=== PATIENT | male | born 1960 | race African-American/Black ===

== ENCOUNTER 2018-03-30 16:24 | Emergency (ER) | payer OTHER ==
[2018-03-30] MEDS ORDERED: Lidocaine 4% Cream 5 GM TUBE w/ Tegaderm ONE (16:54)
[2018-03-30] MEDS ORDERED: Adacel (T-DAP) 0.5 ML VIAL ONE (17:26)
== END 2018-03-30 17:37 | disposition home or self-care (01) ==
LOC: BURERS 16:24
DX: S01.01XA Laceration without foreign body of scalp, initial encounter (principal); I10 Essential (primary) hypertension; Z79.899 Other long term (current) drug therapy; W45.8XXA Other foreign body or object entering through skin, initial encounter
CPT/HCPCS: 12002; 90471; 90715

== ENCOUNTER 2019-08-26 19:09 | Emergency (ER) | payer OTHER | END 2019-08-26 20:00 | disposition home or self-care (01) | LOC: BURERS 19:09 | DX: T63.2X1A Toxic effect of venom of scorpion, accidental (unintentional), initial encounter (principal); I10 Essential (primary) hypertension | CPT/HCPCS: 99281 ==

== ENCOUNTER 2020-05-04 21:11 | Emergency (ER) | payer OTHER ==
[2020-05-04] MEDS ORDERED: Aspirin Chewable 81 MG TAB ONE (21:45)
--- NOTE | 2020-05-04 21:49 | CT ---
CT BRAIN WITHOUT CONTRAST: Date: 05/04/2020 The ventricles are normal ion size with no shift. No intracranial bleeding, mass, or sign of stroke f ound. Skull appears normal. Visible paranasal sinuses and mastoid air cells are clear. IMPRESSION: No acute intracranial findings. Preliminary report called to Rosa in the ER at 2135 hours. CODE CR. POS: HOME
[2020-05-04 21:53] LABS: INR-International Normal Ratio 1.1; Prothrombin Time 14.1 sec (12.0-14.7)
[2020-05-04 22:01] LABS: ALT (SGPT) 20 U/L (8-55); AST (SGOT) 18 U/L (5-34); Albumin 4.4 g/dL (3.5-5.0); Alkaline Phosphatase 56 U/L (40-110); Anion Gap 13 mmol/L (10-20); BUN (Urea Nitrogen) 11 mg/dL (8.4-25.7); Bilirubin, Total 0.6 mg/dL (0.2-1.2); CK (CPK) 206 U/L (30-200); Calc. Creatinine Clearance 0 mL/min (70-130); Calcium 9.2 mg/dL (7.8-10.44); Carbon Dioxide 29 mmol/L (22-29); Chloride 102 mmol/L (98-107); Estimated GFR-MDRD 61; Globulin 2.8 g/dL (2.4-3.5); Glucose 137 mg/dL (70-105); Potassium 3.2 mmol/L (3.5-5.1); Protein, Total 7.2 g/dL (6.0-8.3); Sodium 141 mmol/L (136-145)
[2020-05-04 22:02] LABS: #Basophils 0.1 thou/uL (0.0-0.2); #Eosinphils 0.1 thou/uL (0.0-0.7); #Lymphocytes 1.4 thou/uL (1.20-3.40); #Monocytes 0.5 thou/uL (0.11-0.59); #Neutrophils 4.2 thou/uL (1.40-6.50); %Basophils 1.4 % (0.0-1.0); %Eosinophils 1.2 % (0.0-10.0); %Lymphocytes 22.1 % (21.0-51.0); %Monocytes 7.3 % (0.0-10.0); Hemoglobin 13.1 g/dL (14.0-18.0); Mean Corpuscular HGB CONC 30.3 g/dL (32.0-36.0); Mean Corpuscular Hemoglobin 26.1 pg (27.0-31.0); Mean Corpuscular Volume 86.2 fL (78.0-98.0); Mean Platelet Volume 10.8 fL (7.4-10.4); Platelet Count 175 thou/uL (130-400); RBC Distribution Width 12.9 % (11.5-14.5); Red Blood Cell (RBC) Count 5.01 mill/uL (4.70-6.10); White Blood Cell (WBC) Count 6.1 thou/uL (4.8-10.8)
--- NOTE | 2020-05-05 08:37 | RAD ---
PORTABLE CHEST: DATE: 05/04/2020. FINDINGS: An AP portable film at 2139 shows a normal-sized heart and clear lungs. No infiltrate or effusion wa s seen. There is no vascular congestion or edema. IMPRESSION: No acute thoracic findings. POS: HOME
== END 2020-05-04 23:46 | disposition short-term general hospital (02) ==
LOC: BURERS 21:11
DX: I63.9 Cerebral infarction, unspecified (principal); R47.81 Slurred speech; I10 Essential (primary) hypertension; Z79.899 Other long term (current) drug therapy
CPT/HCPCS: 70450; 71045; 80053; 82550; 84484; 85025; 85610; 85730; 93005; 94760